=== PATIENT | female | born 1955 ===

== ENCOUNTER 2021-09-11 15:09 | Emergency (ER) | payer OTHER ==
[~2021-09-11] VITALS: Ht 172.7 cm; Wt 81.6 kg
[2021-09-11 16:16] VITALS: BP 127/67
== END 2021-09-11 17:20 | disposition home or self-care (01) ==
LOC: ER 15:09
DX: S61.213A Laceration without foreign body of left middle finger without damage to nail, initial encounter (principal); W26.8XXA Contact with other sharp object(s), not elsewhere classified, initial encounter; Y93.89 Activity, other specified; Y92.89 Other specified places as the place of occurrence of the external cause; Y99.8 Other external cause status
CPT/HCPCS: 12001; 99282; J2001

== ENCOUNTER 2021-09-20 09:15 | Emergency (ER) | payer OTHER ==
[~2021-09-20] VITALS: Ht 172.7 cm; Wt 81.6 kg
[2021-09-20 09:42] VITALS: BP 139/55
== END 2021-09-20 09:48 | disposition home or self-care (01) ==
LOC: ER 09:15
DX: S61.213D Laceration without foreign body of left middle finger without damage to nail, subsequent encounter (principal); Z90.710 Acquired absence of both cervix and uterus; W26.8XXD Contact with other sharp object(s), not elsewhere classified, subsequent encounter